=== PATIENT | male | born 1960 | race African-American/Black ===

== ENCOUNTER 2017-08-08 15:16 | Day surgery (SDC) | payer OTHER ==
[~2017-08-08] VITALS: Ht 180.3 cm; Wt 104.9 kg
[2017-08-08] VITALS (9 sets, daily range): BP systolic 110–140; BP diastolic 63–93; PULSE 55–88; RESP 14–24; Ht 180.3 cm; Wt 104.9 kg
[~2017-08-08 15:16] MED LIST: CEFAZOLIN 1 GM INJ ONE
[2017-08-08] MEDS ORDERED: DEXAMETHASONE 4 MG/ML 1 ML INJ ONE ×2 (17:41→18:23)
[2017-08-08] MEDS ORDERED: BUPIVACAINE 0.5% (SDV) 30 ML INJ ONE (17:41)
[2017-08-08] MEDS ORDERED: LIDOCAINE 1% (MPF) 30 ML INJ ONE (17:41)
[2017-08-08] MEDS ORDERED: LIDOCAINE 2% (SDV) 5 ML INJ ONE (17:42)
[2017-08-08] MEDS ORDERED: PROPOFOL 100 ML ONE (17:42)
[2017-08-08] MEDS ORDERED: MIDAZOLAM 1 MG/ML 2 ML INJ ONE ×2 (17:42)
[2017-08-08] MEDS ORDERED: FENTAnyl 50 MCG/ML VIAL ONE (17:42)
--- NOTE | 2017-08-08 17:50 | HPN ---
Date/Time of Note Date/Time of Note DATE: 08/08/17 TIME: 17:50 Interval H&P Admission Note Pt. seen H&P reviewed: No system changes DARVIN FLOWER DPM Aug 08, 2017 17:50
--- NOTE | 2017-08-08 17:51 | HPN ---
Date/Time of Note Date/Time of Note DATE: 08/08/17 TIME: 17:51 Interval H&P Admission Note Pt. seen H&P reviewed: No system changes DARVIN FLOWER DPM Aug 08, 2017 17:51
[2017-08-08] MEDS ORDERED: PHENYLephrine (100 MCG/ML) 5ML SYG ONE (18:23)
[2017-08-08] MEDS ORDERED: ONDANSETRON 4 MG INJ ONE (18:23)
[2017-08-08] MEDS ORDERED: ALBUTEROL 0.5% (NEB) 2.5 MG/0.5 ML AMP ONE (18:41)
[2017-08-08] MEDS ORDERED: KETOROLAC 15 MG INJ IV PRN (19:00)
[2017-08-08] MEDS ORDERED: hydrALAzine 20 MG INJ IV PRN (19:00)
[2017-08-08] MEDS ORDERED: EPHEDrine SULFATE 50 MG/5 ML SYG IV PRN (19:00)
[2017-08-08] MEDS ORDERED: ONDANSETRON 4 MG INJ IV PRN (19:00)
[2017-08-08] MEDS ORDERED: OXYCODONE/ACETAMINOPHEN (5/325) TAB PO PRN ×2 (19:00)
[2017-08-08] MEDS ORDERED: ALBUTEROL 0.083% (NEB) 2.5 MG/3 ML AMP HHN PRN (19:00)
[2017-08-08] MEDS ORDERED: FENTAnyl 50 MCG/ML VIAL IV PRN ×3 (19:00)
[2017-08-08] MEDS ORDERED: DIPHENHYDRAMINE 50 MG INJ IV PRN (19:00)
== END 2017-08-08 19:57 | disposition home or self-care (01) ==
LOC: SDS 15:16
PROVIDERS: ATTEND Podiatrist Primary Podiatric Medicine
DX: M67.472 Ganglion, left ankle and foot (principal); M79.672 Pain in left foot; M72.2 Plantar fascial fibromatosis; I10 Essential (primary) hypertension; Z88.0 Allergy status to penicillin
CPT/HCPCS: 28090; J0690; J1100; J2250; J2405; J3010; Z7512; Z7610; J2370; L3260-LT